=== PATIENT | male | born 1990 | race African-American/Black ===

== ENCOUNTER 2018-07-03 23:56 | Emergency (ER) | payer BC ==
[~2018-07-03] VITALS: Ht 185.4 cm; Wt 71.7 kg
[~2018-07-03 23:56] MED LIST: AMOXICILLIN500 MG ORAL; IBUPROFEN600 MG ORAL; NKM
[2018-07-04] MEDS ORDERED: BIKTARVY 50-201 EACH PO (00:04)
[2018-07-04 00:12] VITALS: BP 114/73
[2018-07-04] MEDS ORDERED: Lidocaine 1% MPF 10mg/ml 5ml INJ ONE (00:15)
[2018-07-04] MEDS ORDERED: DOXYCYCLINE MO100 MG ORAL (00:16)
--- NOTE | 2018-07-04 00:43 | NUR ---
ED Nurse Note: Discharged in good condition; no untoward reaction to Rocephin.
--- NOTE | 2018-07-04 01:31 | Emergency Room Report ---
History of Present Illness General Chief Complaint: Male Urogenital Problems Source: Patient Present Illness HPI Patient is a 28-year-old male presented after increased discomfort to his genital area. Patient reports of increased itching as well as burning. Patient reports having recent unprotected sex. He reports having prior history of HIV. He denies any vomiting or diarrhea. He reports having episodic diarrhea. Allergies: Coded Allergies: No Known Allergies (Unverified , 07/11/14) Patient History Past Medical History: see triage record Reviewed Nursing Documentation: PMH: Agreed; PSxH: Agreed Nursing Documentation-PMH Hx Cardiac Problems: Yes - HIV+ Review of Systems All Other Systems: negative except mentioned in HPI Physical Exam Vital Signs Date Time Temp Pulse Resp B/P (MAP) Pulse Ox O2 Delivery O2 Flow Rate FiO2 07/03/18 23:59 97.5 89 16 114/73 97 Room Air Sp02 EP Interpretation: reviewed, normal General Appearance: normal inspection, well appearing, no apparent distress, alert, GCS 15 Head: atraumatic ENT: normal ENT inspection, hearing grossly normal, normal voice Neck: normal inspection, full range of motion, supple, no bony tend Respiratory: normal inspection, lungs clear, normal breath sounds, no respiratory distress, no retraction, no wheezing Cardiovascular #1: regular rate, rhythm, no edema Gastrointestinal: normal inspection, normal bowel sounds, non tender, soft, no guarding, no hernia Genitourinary: no CVA tenderness Musculoskeletal: normal inspection, back normal, normal range of motion Neurologic: normal inspection, alert, responsive, speech normal Psychiatric: normal inspection, judgement/insight normal, mood/affect normal Skin: normal inspection, normal color, no rash Medical Decision Making Diagnostic Impression: Primary Impression: Sexually transmitted disease exposure ER Course Patient presented for possible sexual transmitted disease exposure. Differential diagnosis include was not limited to gonorrhea, chlamydia, gastroenteritis, among others. Patient has a benign exam and does not appear to require any further imaging or laboratory testing at this time. Patient had a recent unprotected sex. He appears to have risk for gonorrhea and chlamydia and will be empirically treated. Patient given prescription for doxycycline as well as IM Rocephin. He was advised to follow-up with his infectious disease doctor for formal testing. Last Vital Signs Date Time Temp Pulse Resp B/P (MAP) Pulse Ox O2 Delivery O2 Flow Rate FiO2 07/04/18 00:12 97.5 89 16 114/73 97 Room Air Status: improved Disposition: HOME, SELF-CARE Condition: Stable Scripts Doxycycline Monohydrate* (DOXYCYCLINE MONOHYDRATE*) 100 Mg Capsule 100 MG ORAL Q12H, #14 CAP 0 Refills Prov: Jonathan Hernandez MD 07/04/18 Referrals: NOT CHOSEN IPA/,REFERRING (PCP) Patient Instructions: Sexually Transmitted Disease, [id number] Jonathan Hernandez MD Jul 04, 2018 01:31
== END 2018-07-04 00:41 | disposition home or self-care (01) ==
LOC: EMR 07-04 00:28
DX: N50.89 Other specified disorders of the male genital organs (principal); Z20.2 Contact with and (suspected) exposure to infections with a predominantly sexual mode of transmission; B20 Human immunodeficiency virus [HIV] disease; R19.7 Diarrhea, unspecified
CPT/HCPCS: 96372; 96374; 99284; J0696